=== PATIENT | male | born 1935 | race Caucasian/White ===

== ENCOUNTER 2018-06-01 15:17 | Emergency (ER) | payer MEDICARE, BC ==
--- NOTE | 2018-06-01 16:33 | EDM.PDOC ---
ED HPI GENERAL MEDICAL PROBLEM - General Chief Complaint: Cardiovascular Problem Stated Complaint: [facility] Time Seen by Provider: 06/01/18 15:54 Source of Information: Reports: Patient, EMS Notes Reviewed, Old Records, RN Notes Reviewed History Limitations: Reports: No Limitations - History of Present Illness INITIAL COMMENTS - FREE TEXT/NARRATIVE: Patient is an 82 year old male who presents to the ED via [facility] for the evaluation of weakness/dizziness. He states that this started around noon today while he was eating lunch. He states that he was also feeling lightheaded and SOB with pain to his upper back and neck. He states that he did have a similar episode like this in January 2018 and everything was fine at this time. He did go to [facility] and was given one Nitroglycerin there and was sent here by the clinic via ambulance. The nitro did seem to help his pain. 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 At the time of arrival to ED she denies any chest pain, shortness of breath, or any other feelings of lightheadedness/dizziness, and states that he is feeling "fine." He states that his PCP is a provider out of [facility] named Iva Sr, and his manager managed backup services is [place] Sal[place] - Related Data Allergies Allergy/AdvReac Type Severity Reaction Status Date / Time fentanyl Allergy Hives Verified 06/01/18 15:25 plastic tape Allergy Mild Rash Uncoded 06/01/18 15:25 Home Meds: Home Meds Acetaminophen 500 mg PO ASDIRECTED PRN 04/03/14 [History] Ascorbic Acid [Vitamin C] 1,000 mg PO DAILY 04/03/14 [History] Aspirin [[place]ullen Aspirin] 81 mg PO DAILY 04/03/14 [History] Chromium 400 mcg PO BID 04/03/14 [History] Gluc 2KCl/Chondr/Augie Hy/Hy Ac [Glucosamine & Chondroitin Cap] 1 each PO BID [History] Melatonin 10 mg PO BEDTIME PRN 04/03/14 [History] Metoprolol Tartrate 25 mg PO BID 04/03/14 [History] atorvaSTATin [Lipitor] 40 mg PO BEDTIME 04/03/14 [History] metFORMIN [Glucophage] 1,000 mg PO DAILY 04/03/14 [History] Furosemide [Lasix] 20 mg PO DAILY #30 tablet 03/17/15 [Rx] Albuterol Sulfate 1 inhalation NEB Q4H PRN 06/01/18 [History] Allergy Shots 1 injection IM ASDIRECTED 06/01/18 [History] Apixaban [Eliquis] 2.5 mg PO BID #60 tablet 06/01/18 [Rx] Bimatoprost [LUMIGAN 0.01% Ophth Soln] 1 drop EYEBOTH DAILY 06/01/18 [History] Cholecalciferol (Vitamin D3) [Vitamin D3] 1 cap PO DAILY 06/01/18 [History] Iodine 12.5 mg PO MOTHSA 06/01/18 [History] Lactobacillus Rhamnosus GG [Culturelle] 1 cap PO ASDIRECTED 06/01/18 [History] Multivitamin [Daily Multiple Vitamin] 1 cap PO DAILY 06/01/18 [History] [place]-3/DHA/Epa/Fish Oil [[place]-3 EC Softgel] 1 cap PO ASDIRECTED 06/01/18 [ History] Potassium Chloride 10 meq PO DAILY 06/01/18 [History] Ubidecarenone [Coq-10] 100 g PO DAILY 06/01/18 [History] Zyflamend 1 - 2 cap PO DAILY 06/01/18 [History] Past Medical History Cardiovascular History: Reports: HI Musculoskeletal History: Reports: Arthritis, Back Pain, Chronic Endocrine/Metabolic History: Reports: Diabetes, Type II Oncologic (Cancer) History: Reports: Prostate Other Oncologic History: cancer free since 2003 - Past Surgical History Cardiovascular Surgical History: Reports: Coronary Artery Bypass Other Cardiovascular Surgeries/Procedures: 3 vessel bypass 1 year ago today GI Surgical History: Reports: Cholecystectomy Male Surgical History: Reports: Lithotripsy (ESWL), Other (See Below) Other Male Surgeries/Procedures: radiation for prostate cancer in 2003 Social & Family History - Tobacco Use Smoking Status *Q: Former Smoker Used Tobacco, but Quit: Yes Month/Year Tobacco Last Used: 30 years ago - Caffeine Use Caffeine Use: Reports: Coffee - Recreational Drug Use Recreational Drug Use: No - Living Situation & Occupation Living situation: Reports: , with Spouse, with Family Occupation: Employed ED ROS GENERAL - Review of Systems Review Of Systems: See Below Constitutional: Reports: Weakness. Denies: Fever, Chills HEENT: Reports: No Symptoms Respiratory: Reports: Shortness of Breath Cardiovascular: Denies: Chest Pain Endocrine: Reports: No Symptoms GI/Abdominal: Reports: No Symptoms : Reports: No Symptoms Musculoskeletal: Reports: No Symptoms Skin: Reports: No Symptoms Neurological: Reports: Dizziness. Denies: Numbness, Tingling Psychiatric: Reports: No Symptoms Hematologic/Lymphatic: Reports: No Symptoms Immunologic: Reports: No Symptoms ED EXAM, GENERAL - Physical Exam Exam: See Below Exam Limited By: No Limitations General Appearance: Alert, WD/WN, No Apparent Distress Eye Exam: Bilateral Eye: EOMI, Normal Inspection, PERRL Ears: Normal External Exam Nose: Normal Inspection Throat/Mouth: Normal Inspection, Normal Oropharynx Head: Atraumatic, Normocephalic Neck: Normal Inspection, Supple, Non-Tender, Full Range of Motion Respiratory/Chest: No Respiratory Distress, Lungs Clear, Normal Breath Sounds, No Accessory Muscle Use, Chest Non-Tender Cardiovascular: Normal Peripheral Pulses, Regular Rate, Rhythm, No Murmur GI/Abdominal: Normal Bowel Sounds, Soft, Non-Tender, No Distention Extremities: Normal Inspection, Normal Capillary Refill, Pedal Edema (normal bilateral 1+ pitting edema for which he uses RICHARD hose), Nat's Sign (left and right calves positive) Neurological: Alert, Oriented, Normal Cognition, No Motor/Sensory Deficits Psychiatric: Normal Affect, Normal Mood Skin Exam: Warm, Dry, Intact, Normal Color, No Rash EKG INTERPRETATION EKG Date: 06/01/18 Time: 17:02 Rhythm: NSR Rate (Beats/Min): 77 Cutler: Normal P-Wave: Present QRS: Normal ST-T: Normal QT: Normal Comparison: NA - No Prior EKG EKG Interpretation Comments: 1st degree AV block, early R wave transition, Q wave in II,III, aVf, old inferior infarct, QTc mildly elevated. Reviewed with Dr. Panda Course - Vital Signs Last Recorded V/S: Last Vital Signs Temp 96.7 F 06/01/18 15:22 Pulse 83 06/01/18 15:22 Resp 18 06/01/18 15:22 BP 90/52 L 06/01/18 15:22 Pulse Ox 92 L 06/01/18 15:22 - Orders/Labs/Meds Orders: Active Orders 24 hr Category Date Time Status EKG Documentation Completion [RC] STAT Care 06/01/18 15:55 Active Chest 2V [CR] Stat Exams 06/01/18 15:55 Taken Sodium Chloride 0.9% [Normal Saline] 1,000 ml Med 06/01/18 17:15 Active IV ASDIRECTED Sodium Chloride 0.9% [Normal Saline] 250 ml Med 06/01/18 18:45 Active IV ASDIRECTED Medication Orders Sodium Chloride (Normal Saline) 1,000 mls @ 125 mls/hr IV ASDIRECTED STACEY Last Admin: 06/01/18 17:44 Dose: 125 mls/hr Sodium Chloride (Normal Saline) 250 mls @ 75 mls/hr IV ASDIRECTED STACEY Last Admin: 06/01/18 19:00 Dose: 75 mls/hr Labs: Laboratory Tests 06/01/18 06/01/18 06/01/18 Range/Units 16:10 16:10 16:10 WBC 8.11 (4.23-9.07) K/mm3 RBC 4.51 L (4.63-6.08) M/mm3 Hgb 12.9 L (13.7-17.5) gm/L Hct 39.9 L (40.1-51.0) % MCV 88.5 (79.0-92.2) fl MCH 28.6 (25.7-32.2) pg MCHC 32.3 (32.2-35.5) g/dl RDW Std Deviation 45.7 H (35.1-43.9) fL Plt Count 236 (163-337) K/mm3 MPV 9.6 (9.4-12.3) fl Neutrophils % (Manual) 79 H (40-60) % Band Neutrophils % 0 (0-10) % Lymphocytes % (Manual) 14 L (20-40) % Atypical Lymphs % 0 % Monocytes % (Manual) 5 (2-10) % Eosinophils % (Manual) 2 (0.8-7.0) % Basophils % (Manual) 0 L (0.2-1.2) Platelet Estimate Adequate Poikilocytosis 1+ slight Ovalocytes 1+ slight RBC Morph Comment Not Reportable PT 11.4 (9.5-12.1) SECONDS INR 1.05 APTT 27 (24-31) SECONDS D-Dimer, Quantitative 4.31 H (0.19-0.50) mg/L Sodium 144 (136-145) mEq/L Potassium 4.2 (3.5-5.1) mEq/L Chloride 109 H (98-107) mEq/L Carbon Dioxide 28 (21-32) mEq/L Anion Gap 11.2 (5-15) BUN 18 (7-18) mg/dL Creatinine 1.4 H (0.7-1.3) mg/dL Est Cr Clr Drug Dosing 44.82 mL/min Estimated GFR (MDRD) 49 (>60) mL/min BUN/Creatinine Ratio 12.9 L (14-18) Glucose 167 H (83-115) mg/dL Calcium 9.2 (8.5-10.1) mg/dL Total Bilirubin 0.5 (0.2-1.0) mg/dL AST 23 (15-37) U/L ALT 30 (16-63) U/L Alkaline Phosphatase 120 H (46-116) U/L Troponin I 0.025 (0.00-0.056) ng/mL NT-Pro-B Natriuret Pep (0-450) pg/mL Total Protein 6.7 (6.4-8.2) g/dl Albumin 3.0 L (3.4-5.0) g/dl Globulin 3.7 gm/dL Albumin/Globulin Ratio 0.8 L (1-2) 06/01/18 Range/Units 16:10 WBC (4.23-9.07) K/mm3 RBC (4.63-6.08) M/mm3 Hgb (13.7-17.5) gm/L Hct (40.1-51.0) % MCV (79.0-92.2) fl MCH (25.7-32.2) pg MCHC (32.2-35.5) g/dl RDW Std Deviation (35.1-43.9) fL Plt Count (163-337) K/mm3 MPV (9.4-12.3) fl Neutrophils % (Manual) (40-60) % Band Neutrophils % (0-10) % Lymphocytes % (Manual) (20-40) % Atypical Lymphs % % Monocytes % (Manual) (2-10) % Eosinophils % (Manual) (0.8-7.0) % Basophils % (Manual) (0.2-1.2) Platelet Estimate Poikilocytosis Ovalocytes RBC Morph Comment PT (9.5-12.1) SECONDS INR APTT (24-31) SECONDS D-Dimer, Quantitative (0.19-0.50) mg/L Sodium (136-145) mEq/L Potassium (3.5-5.1) mEq/L Chloride (98-107) mEq/L Carbon Dioxide (21-32) mEq/L Anion Gap (5-15) BUN (7-18) mg/dL Creatinine (0.7-1.3) mg/dL Est Cr Clr Drug Dosing mL/min Estimated GFR (MDRD) (>60) mL/min BUN/Creatinine Ratio (14-18) Glucose (83-115) mg/dL Calcium (8.5-10.1) mg/dL Total Bilirubin (0.2-1.0) mg/dL AST (15-37) U/L ALT (16-63) U/L Alkaline Phosphatase (46-116) U/L Troponin I (0.00-0.056) ng/mL NT-Pro-B Natriuret Pep 190 (0-450) pg/mL Total Protein (6.4-8.2) g/dl Albumin (3.4-5.0) g/dl Globulin gm/dL Albumin/Globulin Ratio (1-2) Meds: Medications Generic Name Dose Route Start Last Admin Trade Name Freq PRN Reason Stop Dose Admin Sodium Chloride 1,000 mls @ 125 mls/hr 06/01/18 17:15 06/01/18 17:44 Normal Saline IV 125 mls/hr ASDIRECTED STACEY Administration Sodium Chloride 250 mls @ 75 mls/hr 06/01/18 18:45 06/01/18 19:00 Normal Saline IV 75 mls/hr ASDIRECTED STACEY Administration Discontinued Medications Generic Name Dose Route Start Last Admin Trade Name Freq PRN Reason Stop Dose Admin Apixaban 2.5 mg 06/01/18 19:44 Eliquis PO 06/01/18 19:45 ONETIME ONE Iopamidol 100 ml 06/01/18 18:38 06/01/18 19:00 Isovue-370 (76%) IVPUSH 06/01/18 18:39 100 ml ONETIME ONE Administration - Radiology Interpretation Free Text/Narrative:: CT chest Technique: Multiple axial sections through the chest were obtained. Intravenous contrast was utilized. Study performed as a pulmonary angiogram protocol. Findings: Very small filling defect compatible with very small pulmonary embolism is seen within the segmental branch of the right middle lobe. No other filling defect seen to indicate additional pulmonary emboli. Mediastinum and hilar regions show no adenopathy. Previous sternotomy is noted. Coronary artery calcification is noted. Heart is slightly enlarged. Small portion of the visualized lung bases shows 2 cysts within the left lobe of the liver with largest measuring 2.3 cm. Previous cholecystectomy is noted. Nonobstructing calculus is seen within the left kidney measuring 1.0 cm. Hazy groundglass appearance seen within portions of the left upper and left lower lung. Very minimal right sided pleural effusion is seen with adjacent area of parenchymal density. Impression: 1. Very minimal pulmonary embolism within the segmental branch of the right middle lobe. No other findings of pulmonary embolism are seen. 2. Mild hazy groundglass appearance of the left upper and left lower lung which could represent mild area of bronchiolitis although findings could also represent fibrosis. 3. Very minimal right sided pleural effusion with adjacent parenchymal density most likely due to atelectasis/scarring. 4. Other incidental findings as described above. Diagnostic code #3 - Re-Assessments/Exams Free Text/Narrative Re-Assessment/Exam: 06/01/18 17:23 Pt presents to the ED for the evaluation of weakness/dizziness. CBC, CMP, BNP, Trop, D-Dimer, PT/PTT/INR, 2 view chest x-ray and EKG have been ordered for initial evaluation. Some of his labs have come back, his D-dimer was elevated at 4.3, trop is negative and other labs are essentially WNL. CT angio has been ordered for further evaluation of possible PE. 06/01/18 19:51 CT angio of the chest did demonstrate a small PE in his right lung. The patient will be started on Eliquis 2.5mg BID due to age, weight and renal function. He will be provided with script for a month's supply until he can be evaluated by PCP. Departure - Departure Time of Disposition: 19:52 Disposition: Home, Self-Care 01 Condition: Fair Clinical Impression: Pulmonary embolism Qualifiers: Pulmonary embolism type: unspecified Chronicity: acute Acute cor pulmonale presence: without acute cor pulmonale Qualified Code(s): I26.99 - Other pulmonary embolism without acute cor pulmonale Prescriptions: Apixaban [Eliquis] 2.5 mg PO BID #60 tablet Instructions: Venous Thromboembolism Prevention, Pulmonary Embolism, Bleeding Precautions When on Anticoagulant Therapy, Adult Forms: ED Department Discharge Additional Instructions: You have been evaluated in the ED for dizziness/lightheadedness. Your labs and CT of your chest show that you have a small right sided blood clot in your lung. You have been started on a medication called Eliquis, this is a blood thinner. Please take 1 tab (2.5mg) twice daily. This has been electronically sent to [facility], which is located in the [facility]. Please do not take your Metformin for 3 days (resume 06/05/18). This is due to the IV contrast we had to give you for the CT of your chest. Please follow up with your PCP within the next month so that she may provide you with a continuing prescription for Eliquis. Please return to the ED if your symptoms change or worsen. - My Orders Last 24 Hours: My Active Orders 06/01/18 15:55 EKG Documentation Completion [RC] STAT Chest 2V [CR] Stat 06/01/18 17:15 Sodium Chloride 0.9% [Normal Saline] 1,000 ml IV ASDIRECTED 06/01/18 18:45 Sodium Chloride 0.9% [Normal Saline] 250 ml IV ASDIRECTED - Assessment/Plan Last 24 Hours: My Active Orders 06/01/18 15:55 EKG Documentation Completion [RC] STAT Chest 2V [CR] Stat 06/01/18 17:15 Sodium Chloride 0.9% [Normal Saline] 1,000 ml IV ASDIRECTED 06/01/18 18:45 Sodium Chloride 0.9% [Normal Saline] 250 ml IV ASDIRECTED
[2018-06-01] MEDS ORDERED: Sodium Chloride 0.9% 1,000 ML IV SCH (17:15)
[2018-06-01] MEDS ORDERED: Iopamidol 755 Mg/ML 100 ML Bottle IVPUSH ONE (18:38)
[2018-06-01] MEDS ORDERED: Sodium Chloride 0.9% 250 ML IV SCH (18:45)
--- NOTE | 2018-06-01 19:18 | CT ---
CT chest Technique: Multiple axial sections through the chest were obtained. Intravenous contrast was utilized. Study performed as a pulmonary angiogram protocol. Findings: Very small filling defect compatible with very small pulmonary embolism is seen within the segmental branch of the right middle lobe. No other filling defect seen to indicate additional pulmonary emboli. Mediastinum and hilar regions show no adenopathy. Previous sternotomy is noted. Coronary artery calcification is noted. Heart is slightly enlarged. Small portion of the visualized lung bases shows 2 cysts within the left lobe of the liver with largest measuring 2.3 cm. Previous cholecystectomy is noted. Nonobstructing calculus is seen within the left kidney measuring 1.0 cm. Hazy groundglass appearance seen within portions of the left upper and left lower lung. Very minimal right sided pleural effusion is seen with adjacent area of parenchymal density. Impression: 1. Very minimal pulmonary embolism within the segmental branch of the right middle lobe. No other findings of pulmonary embolism are seen. 2. Mild hazy groundglass appearance of the left upper and left lower lung which could represent mild area of bronchiolitis although findings could also represent fibrosis. 3. Very minimal right sided pleural effusion with adjacent parenchymal density most likely due to atelectasis/scarring. 4. Other incidental findings as described above. Diagnostic code #3
[2018-06-01] MEDS ORDERED: Apixaban 5 MG Tab PO ONE (19:44)
[2018-06-01 22:02] VITALS: BP 100/64
--- NOTE | 2018-06-02 15:10 | CR ---
Chest: Two views of the chest were obtained. Comparison: Prior chest x-ray of 03/17/15. Heart size is slightly enlarged. Lungs are grossly clear. Bony structures show degenerative endplate spurring within the spine. Previous sternotomy is noted for CABG. Impression: 1. Findings as described above. Nothing acute is definitely appreciated. Diagnostic code #2
== END 2018-06-01 20:55 | disposition home or self-care (01) ==
LOC: JD.ED 15:17
DX: I26.99 Other pulmonary embolism without acute cor pulmonale (principal); I25.2 Old myocardial infarction; E11.9 Type 2 diabetes mellitus without complications; Z87.891 Personal history of nicotine dependence; Z79.84 Long term (current) use of oral hypoglycemic drugs; Z91.048 Other nonmedicinal substance allergy status; Z79.899 Other long term (current) drug therapy; Z79.82 Long term (current) use of aspirin
CPT/HCPCS: 36415; 71046; 71275; 80053; 83880; 84484; 85007; 85027; 85379; 85610; 85730; 93005; 96360; 96361; 99285; A9270; J7040; J7050; Q9967; 93010; 99284

== ENCOUNTER 2024-02-03 08:15 | Emergency (ER) | payer BC, MEDICARE ==
[2024-02-03] MEDS ORDERED: Sodium Chloride 0.9% 10 ML Syringe FLUSH PRN (08:46)
[2024-02-03] MEDS: Sodium Chloride 0.9% 1,000 ML IV ONE (09:03)
[2024-02-03 09:13] LABS: HEMATOCRIT 38.6 % (42.0-52.0); MEAN CORPUSCULAR HEMOGLOBIN 27.8 pg (28.0-32.0); MEAN CORPUSCULAR HGB CONC 33.7 g/dl (32.0-36.0); MEAN CORPUSCULAR VOLUME 82.7 fl (83.0-99.0); MEAN PLATELET VOLUME 11.4 fl (9.4-12.4); PLATELET COUNT,PLT 190 K/mm3 (150-400); RED BLOOD CELL COUNT 4.67 M/mm3 (4.52-5.90); WHITE BLOOD CELL COUNT,WBC 26.15 K/mm3 (3.9-11.3)
[2024-02-03 09:14] LABS: INR 1.14
[2024-02-03 09:23] LABS: A/G RATIO 0.6 (1-2); ALBUMIN 2.3 g/dl (3.4-5.0); ANION GAP 17.2 (5-15); BILIRUBIN TOTAL 8.9 mg/dL (0.2-1.0); BUN/CREATININE RATIO 14.7 (14-18); C-REACTIVE PROTEIN 23.09 mg/dL (<0.30); CALCIUM 8.7 mg/dL (8.5-10.1); EST CRCL DRUG DOSING (CG) 37.65 mL/min
[2024-02-03 09:27] LABS: CREATININE 1.5 mg/dL (0.7-1.3); POTASSIUM,K 3.2 mEq/L (3.5-5.1); PROTEIN TOTAL,TP 6.3 g/dl (6.4-8.2)
[2024-02-03 09:56] LABS: CORONAVIRUS COVID-19 NAA NEGATIVE (NEGATIVE); INFLUENZA A NAA NEGATIVE (NEGATIVE); RESPIRATORY SYNCYTIAL VIR NAA NEGATIVE (NEGATIVE)
[2024-02-03] MEDS: LORazepam 2 MG/ML SDV IVPUSH ONE (10:01)
[2024-02-03 10:04] LABS: LACTIC ACID 2.5 mmol/L (0.4-2.0)
[2024-02-03] MEDS: cefTRIAXone 2 GM in Sodium Chloride 0.9% 100 ML IV ONE (10:24)
[2024-02-03] MEDS: Iopamidol 612 MG/ML 100 ML Bottle IVPUSH ONE (10:28)
[2024-02-03 10:30] LABS: BAND PERCENT MAN 2 % (0-10); BASOPHILS PERCENT MAN 0 (0.2-1.2); EOSINOPHILS PERCENT MAN 0 % (0.8-7.0); LYMPHOCYTES % ATYPICAL MANUAL 0 %; LYMPHOCYTES PERCENT MAN 3 % (20-40); METAMYELOCYTE PERCENT MAN 1; MONOCYTES PERCENT MAN 2 % (2-10); PROMYELOCYTE PERCENT MAN 1
[2024-02-03 10:31] LABS: PLATELET COUNT ESTIMATE ADEQUATE
[2024-02-03 10:34] LABS: ACANTHOCYTES FEW; OVALOCYTES FEW
[2024-02-03 10:43] LABS: TARGET CELLS FEW
[2024-02-03 10:45] LABS: SCHISTOCYTES RARE
[2024-02-03 11:05] VITALS: BP 114/61; PULSE 106
[2024-02-03] MEDS: metroNIDAZOLE/Normal Saline 500 MG in Premix Bag 1 BAG IV ONE (12:58)
[2024-02-03] MEDS: Lactated Ringers 1,000 ML IV SCH (12:59)
== END 2024-02-03 13:36 ==
LOC: JD.ED 08:15
DX: A41.9 Sepsis, unspecified organism (principal); K85.10 Biliary acute pancreatitis without necrosis or infection; K80.30 Calculus of bile duct with cholangitis, unspecified, without obstruction; I25.2 Old myocardial infarction; E11.9 Type 2 diabetes mellitus without complications; M19.90 Unspecified osteoarthritis, unspecified site; Z95.1 Presence of aortocoronary bypass graft; Z79.01 Long term (current) use of anticoagulants; Z79.82 Long term (current) use of aspirin; Z79.899 Other long term (current) drug therapy; Z88.8 Allergy status to other drugs, medicaments and biological substances; Z91.048 Other nonmedicinal substance allergy status
CPT/HCPCS: 0241U; 36415; 71045; 74177; 80053; 83605; 83690; 83880; 84484; 85007; 85027; 85610; 86140; 87040; 87077; 87154; 87186; 93005; 96361; 96365; 96367; 96375; 99285; J0696; J1836; J2060; J3490; J7030; J7120; Q9967; 93010

== ENCOUNTER 2024-02-11 13:04 | Emergency (ER) | payer MEDICARE ==
[2024-02-11 13:18] VITALS: BP 147/84; PULSE 108
[2024-02-11] MEDS ORDERED: Sodium Chloride 0.9% 10 ML Syringe FLUSH PRN (13:55)
[2024-02-11 14:26] LABS: HEMATOCRIT 36.8 % (42.0-52.0); HEMOGLOBIN 11.9 gm/dl (14.0-18.0); MEAN CORPUSCULAR HEMOGLOBIN 27.9 pg (28.0-32.0); MEAN CORPUSCULAR HGB CONC 32.3 g/dl (32.0-36.0); MEAN CORPUSCULAR VOLUME 86.4 fl (83.0-99.0); MEAN PLATELET VOLUME 10.2 fl (9.4-12.4); PLATELET COUNT,PLT 387 K/mm3 (150-400); RED BLOOD CELL COUNT 4.26 M/mm3 (4.52-5.90)
[2024-02-11 14:45] LABS: INR 1.07; PROTHROMBIN TIME 11.3 SECONDS (9.7-12.0)
[2024-02-11 14:53] LABS: APPEARANCE,URINE CLEAR (Clear); BILIRUBIN,URINE NEGATIVE (Negative); COLOR,URINE YELLOW (Yellow); GLUCOSE,URINE 1+ (Negative); KETONES,URINE NEGATIVE (Negative); LEUKOCYTE ESTERASE,URINE NEGATIVE (Negative); NITRITE,URINE NEGATIVE (Negative); OCCULT BLOOD,URINE TRACE-LYSED (Negative); PH,URINE 6.5 (5.0-8.0); PROTEIN,URINE NEGATIVE (Negative); UROBILINOGEN,URINE 0.2 (0.2-1.0)
[2024-02-11 15:00] LABS: A/G RATIO 0.6 (1-2); ALBUMIN 2.3 g/dl (3.4-5.0); ANION GAP 11.1 (5-15); BILIRUBIN TOTAL 1.4 mg/dL (0.2-1.0); C-REACTIVE PROTEIN 2.37 mg/dL (<0.30); CALCIUM 8.8 mg/dL (8.5-10.1); EST CRCL DRUG DOSING (CG) 54.75 mL/min; POTASSIUM,K 4.1 mEq/L (3.5-5.1); PROTEIN TOTAL,TP 6.3 g/dl (6.4-8.2)
[2024-02-11 15:02] LABS: BAND PERCENT MAN 0 % (0-10); BASOPHILS PERCENT MAN 2 (0.2-1.2); EOSINOPHILS PERCENT MAN 2 % (0.8-7.0); LYMPHOCYTES % ATYPICAL MANUAL 16 %; LYMPHOCYTES PERCENT MAN 6 % (20-40); METAMYELOCYTE PERCENT MAN 1; MONOCYTES PERCENT MAN 12 % (2-10); POIKILOCYTOSIS 1+ SLIGHT
[2024-02-11 15:03] LABS: HYPOCHROMASIA 1+ SLIGHT; OVALOCYTES FEW; PLATELET COUNT ESTIMATE ADEQUATE
[2024-02-11 15:09] LABS: LACTIC ACID 2.2 mmol/L (0.4-2.0)
[2024-02-11 15:28] LABS: SQUAMOUS EPITHELIAL CELLS,UR 0-5 /hpf (0-5)
[2024-02-11 15:29] LABS: BACTERIA,URINE FEW /hpf (FEW); MUCUS,URINE FEW /hpf (FEW)
== END 2024-02-11 15:40 | disposition home or self-care (01) ==
LOC: JD.ED 13:04
DX: I50.9 Heart failure, unspecified (principal); J44.9 Chronic obstructive pulmonary disease, unspecified; E11.9 Type 2 diabetes mellitus without complications; Z86.16 Personal history of COVID-19; Z90.49 Acquired absence of other specified parts of digestive tract; Z79.899 Other long term (current) drug therapy; Z79.82 Long term (current) use of aspirin; Z79.84 Long term (current) use of oral hypoglycemic drugs; Z88.8 Allergy status to other drugs, medicaments and biological substances; Z91.048 Other nonmedicinal substance allergy status
CPT/HCPCS: 36415; 71046; 71046-26; 80053; 81001; 83605; 83690; 83880; 84484; 85007; 85027; 85610; 86140; 87040; 93005; 93010; 99283; 99284

== ENCOUNTER 2024-08-31 17:16 | Emergency (ER) | payer MEDICARE ==
[2024-08-31 18:58] VITALS: BP 120/72; PULSE 82
== END 2024-08-31 18:52 | disposition home or self-care (01) ==
LOC: JD.ED 17:16
DX: R60.9 Edema, unspecified (principal); I87.2 Venous insufficiency (chronic) (peripheral); I50.9 Heart failure, unspecified; Z88.8 Allergy status to other drugs, medicaments and biological substances; Z79.82 Long term (current) use of aspirin; Z79.899 Other long term (current) drug therapy; Z79.84 Long term (current) use of oral hypoglycemic drugs; E11.9 Type 2 diabetes mellitus without complications; Z86.16 Personal history of COVID-19; Z90.49 Acquired absence of other specified parts of digestive tract
CPT/HCPCS: 99283